=== PATIENT | male | born 1995 | race Caucasian/White ===

== ENCOUNTER 2017-10-22 23:56 | Emergency (ER) | payer SELFPAY ==
[~2017-10-22] VITALS: Ht 172.7 cm; Wt 77.1 kg
[2017-10-23] MEDS ORDERED: Tetanus/Diptheria/Pertussis Vaccine 0.5ml Syr IM ONE (00:15)
[2017-10-23] MEDS ORDERED: Morphine Sulfate 10mg/ml Inj IVP ONE (00:15)
[2017-10-23 00:28] VITALS: BP 138/83
[2017-10-23] MEDS ORDERED: DOXYCYCLINE MO100 MG ORAL (01:49)
[2017-10-23] MEDS ORDERED: IBUPROFEN600 MG ORAL (01:49)
[2017-10-23] MEDS ORDERED: HYDROCODON-ACE1 EA15 ORAL (01:49)
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
[2017-10-23] MEDS ORDERED: Norco 5mg/325mg tab ORAL ONE (02:00)
[2017-10-23] MEDS ORDERED: Ciprofloxacin 500mg tab ORAL ONE (02:00)
[2017-10-23 03:20] VITALS: BP 127/86
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
== END 2017-10-23 02:30 | disposition home or self-care (01) ==
LOC: EMR 10-23 00:13
DX: S00.81XA Abrasion of other part of head, initial encounter (principal); S61.411A Laceration without foreign body of right hand, initial encounter; S60.212A Contusion of left wrist, initial encounter; Y04.2XXA Assault by strike against or bumped into by another person, initial encounter; Y92.9 Unspecified place or not applicable; Z23 Encounter for immunization; Z88.0 Allergy status to penicillin
CPT/HCPCS: 13132; 70450; 71101; 73130; 90471; 90715; 99284; J2270